=== PATIENT | male | born 1975 | race Asian ===

== ENCOUNTER → 2017-06-29 | Outpatient (CLI) | payer MEDICAID ==
[2017-06-29 08:04] LABS: Cholesterol 197 mg/dL (<200); Glucose 111 mg/dL (74-99); HDL Cholesterol 38 mg/dL (40-60); LDL Cholesterol,Calculated 122 mg/dL (0-99); Triglycerides 185 mg/dL (<150)
[2017-06-29 15:41] LABS: Hemoglobin A1C 5.7 % (4.0-6.0)
== END | disposition home or self-care (01) ==
LOC: LABWHC1 06:55
PROVIDERS: ATTEND Family Medicine
DX: E78.5 Hyperlipidemia, unspecified (principal); R73.09 Other abnormal glucose
CPT/HCPCS: 36415; 80061; 82947; 83036

== ENCOUNTER → 2017-12-29 | Outpatient (CLI) | payer MEDICAID ==
--- NOTE | 2017-12-29 15:30 | XR ---
EXAMINATION TYPE: XR lumbar spine 2 or 3V DATE OF EXAM: 12/29/2017 CLINICAL HISTORY: Back pain for 6 to 8 months TECHNIQUE: Frontal and lateral images of the lumbar spine are obtained. COMPARISON: None FINDINGS: There are 5 lumbar type vertebral bodies identified. The lumbar spine shows satisfactory alignment without evidence of acute fracture or dislocation. Vertebral body heights and disk space he ights are within normal limits. Very mild degenerative changes are seen as small anterior osteophytes are present at L4-L5 and L5-S1. The overlying soft tissue appears unremarkable. IMPRESSION: No acute fracture or dislocation is seen in the lumbar spine. Very mild degenerative migel nges at L4-S1.
--- NOTE | 2017-12-29 15:32 | XR ---
EXAMINATION TYPE: XR KUB DATE OF EXAM: 12/29/2017 2:53 PM CLINICAL HISTORY: Abdominal and back pain TECHNIQUE: Single supine KUB image of the abdomen is obtained. COMPARISON: None. FINDINGS: Scattered gas is seen in non-distended small bowel loops. Gas and fecal material is seen in non-distended colon. There is no visceromegaly, gross evidence of pneumoperitoneum, or abnormal calc ification appreciated. The lung bases are clear and the osseous structures are intact. Multiple phleb oliths are noted within the pelvis. Mild degenerative changes of the lumbosacral spine and femoral ac etabular joints are noted. IMPRESSION: No abnormal calcifications to suggest nephrolithiasis. Nonobstructive bowel gas pattern.
== END | disposition home or self-care (01) ==
LOC: RADXRMAIN 14:35
PROVIDERS: ATTEND Internal Medicine
DX: M47.817 Spondylosis without myelopathy or radiculopathy, lumbosacral region (principal); R14.3 Flatulence
CPT/HCPCS: 72100; 74018

== ENCOUNTER → 2018-01-02 | Outpatient (CLI) | payer MEDICAID ==
--- NOTE | 2018-01-02 10:07 | US ---
EXAMINATION TYPE: US kidneys/renal and bladder DATE OF EXAM: 01/02/2018 COMPARISON: NONE CLINICAL HISTORY: R31.9 Hematuria. EXAM MEASUREMENTS: Right Kidney: 11.8 x 7.3 x 5.4 cm cm Left Kidney: 12.7 x 5.9 x 6.0 cm cm Post Void Residual Volume: 0 mL Right Kidney: Unremarkable. No hydronephrosis or nephrolithiasis. Cortical medullary differentiatio n is maintained. Left Kidney: Unremarkable. No hydronephrosis or nephrolithiasis. Cortical medullary differentiation is maintained. Bladder: wnl Bilateral Jets seen: Yes Normal Post Void Residual: Yes There is no evidence for hydronephrosis at this point in time. No nephrolithiasis is seen. No eduardo s are identified. The urinary bladder is anechoic. Bilateral ureteral jets are seen. IMPRESSION: Unremarkable renal ultrasound. In the setting of hematuria CT urogram could be considered for further evaluation.
== END | disposition home or self-care (01) ==
LOC: RADUSWWP 08:26
PROVIDERS: ATTEND Internal Medicine
DX: R31.9 Hematuria, unspecified (principal)
CPT/HCPCS: 76770

== ENCOUNTER → 2018-04-11 | Outpatient (CLI) | payer MEDICAID ==
--- NOTE | 2018-04-11 08:23 | MR ---
EXAMINATION TYPE: MR lumbar spine wo con DATE OF EXAM: 04/11/2018 COMPARISON: Lumbar spine x-ray December 29, 2017. HISTORY: Spondylosis lumbosacral region per order. Low back pain for one year radiating into right bu ttocks. TECHNIQUE: Multiplanar, multisequence imaging of the lumbar spine is performed without IV contrast. FINDINGS: Sagittal images of the lumbar spine show vertebral body heights to appear satisfactory. The re is subtle grade 1 anterolisthesis of L4 on L5. Disc desiccation with mild disc space narrowing L4- L5 is present. No large posterior disc herniations are seen on sagittal images. The conus medullaris is normal in position and signal ending inferior T12 level. The bone marrow signal intensity is with in normal limits. Mild multilevel anterior spurring in the lower lumbar spine is present. Axial images show the T12-L1, L1-L2, L2-L3, and L3-L4 levels to appear within normal limits. Axial images at the L4-L5 level show spondylolisthesis and broad-based posterior disc protrusion. The re is mild facet degenerative changes and ligament flavum hypertrophy. There is effacement of the ant erior thecal sac. There is mild to moderate bilateral anterior inferior neural foraminal narrowing. Axial images at the L5-S1 level show mild to moderate facet degenerative changes bilaterally. Spinal canal is preserved. Bilateral neural foramina are patent. No suspicious retroperitoneal findings are seen. IMPRESSION: Subtle Spondylolisthesis L4-L5 level with degenerative changes as detailed above.
== END | disposition home or self-care (01) ==
LOC: RADMRIMAIN 06:53
PROVIDERS: ATTEND Internal Medicine
DX: M48.061 Spinal stenosis, lumbar region without neurogenic claudication (principal); M99.73 Connective tissue and disc stenosis of intervertebral foramina of lumbar region; M51.26 Other intervertebral disc displacement, lumbar region; M43.16 Spondylolisthesis, lumbar region; M47.816 Spondylosis without myelopathy or radiculopathy, lumbar region
CPT/HCPCS: 72148

== ENCOUNTER → 2018-05-30 | Outpatient (CLI) | payer MEDICAID ==
[2018-05-29 16:12] VITALS: BMI 31.7
[2018-05-30 12:15] VITALS: BP 149/94; PULSE 71; RESP 18
--- NOTE | 2018-05-30 13:02 | P.PAINCN ---
History of Present Illness - Reason for Consult Consult date: 05/30/18 - History of Present Illness This is 42 years old male with a chronic history of severe low back pain, started more than a year ago, he denies any initiating event, he reported that the pain is constant localized mainly on the right side and is not radiated to the lower extremity, he denies any fever or night sweats but denies any change in the bowel movement or urination, and no motor or sensory deficit, he is done chiropractics without any benefit, he is using diclofenac twice a day, with minimal benefit Past Medical History Past Medical History: Musculoskeletal Disorder Additional Past Medical History / Comment(s): low back pain History of Any Multi-Drug Resistant Organisms: None Reported Additional Past Surgical History / Comment(s): eye surg. Past Anesthesia/Blood Transfusion Reactions: No Reported Reaction Smoking Status: Never smoker Past Alcohol Use History: Occasional Past Drug Use History: None Reported - Past Family History Mother Family Medical History: No Reported History Medications and Allergies Home Medications Medication Instructions Recorded Confirmed Type Acetaminophen Tab [Tylenol Tab] 1,000 mg PO Q6HR PRN 05/29/18 05/29/18 History Diclofenac Sodium [Voltaren] 50 mg PO BID 05/29/18 05/29/18 History Ibuprofen [Motrin] 400 mg PO Q6HR PRN 05/29/18 05/29/18 History Allergies Allergy/AdvReac Type Severity Reaction Status Date / Time No Known Allergies Allergy Verified 05/29/18 16:02 Physical Exam Vitals: Vital Signs Pulse Resp BP Pulse Ox 05/30/18 12:02 71 18 149/94 98 Intake and Output 05/29/18 05/30/18 05/30/18 22:59 06:59 14:59 Other: Weight 97.522 kg Social history : not smoker , NO ETOH , NO Illegal drugs use Review of Systems : 1- Constitutional : no chills , no fever , no night sweats , 2- Ears : no ear discharge , no change in hearing 3-Nose, Mouth ,Throat ; no bleeding gums, no sore throat , no epistaxis , 4-Cardiovascular : Denies chest pain, , no orthopnea , no palpitation 5-Respiratory : Denies cough , no dyspnea , no hemoptysis 6-Gastrointestinal :, no change in bowel habits , no coffee- ground emesis . 7-Genitourinary : No hematuria , no discharge , no incontinence, 8-Musculoskeletal : No gait dysfunction , report low back pain , 9- Neurological : no ataxia , no tremor , no sezure , 10-Psychatric , no suicidal ideation no hallucination 11- Endocrine : no cold intolerence , no polyuria , no polydypsia , 12-Hematologic : no easy bleeding , no easy brusing , 13-Allergic / immunology : no angioedema , no wheezing ,no allergic rhinitis 14-Integumentary : no brttle nails , no change hair / nails , no foot/leg ulcers . Physical Examinations : 1-Constitutional : Cooperative , not in acute distress . 2-HEENT : nech ; supple , no Lymphadenopathy , no Thyromegaly , :eyes , no icterus, no photophobia . ENT : , normal oropharynx , no Thrush 3- Respiratory : Chest clear to auscultations Bilaterally , no wheezing . 4- Cardiovascular : regular rate and rhythem , S1 , S2 , no S3 , no S4. 5- Gastrointestinal: abdomen soft no tenderness , no organomegally . 6- Genitourinary : Defferred . 7-Integumentary : No cellulitis , no ulcers , normal skin turgor , no cyanotic . 8- neurologic : Cranial nerve II to XII intact , no focal neurological deffecit 9-psychatric : alert , oriented X 3 , appropriate affect , intact judgment and insight . 10-Lymphatic : no Lymphadenopathy. 11- musculoskeltal: normal gait Lumber spine moter stegnth lower extremities ,thigh and legs 5/5 Right side , 5/5 Left side deep tendon reflexes : normal Knee Jerk , normal ankle Jerk positive lumber facet Loading Test Range of motion of the lumbar spine Flexion 30 degrees, extension 10 degrees strait leg raising test negative bilaterally Fabere test negative bilaterally mild tenderness over the Sacroiliac joint on the R sides Results Comments: MRI of the lumbar spine spondylolisthesis, and L4 5 and L5-S1 lumbar facet arthropathy Assessment and Plan Plan: Assessment and plan= chronic severe low back pain secondary to lumbar spondylosis with facet arthropathy Patient will be good candidate to have diagnostic medial branch block lumbar area right-sided L3 4, L4 5 and L5-S1 x2 She had more than 50% improvement in his pain level then he would be good candidate to have RFA of the lumbar medial branch Time with Patient: Greater than 30 PQRS Measure Charge Sheet Measure #130: Documentation of Current Meds in Medical Chart: Patient's medications documented in chart Measure #226: Tobacco Use: Screen & Cessation Intervention: Pt not a tobacco user Measure #111: Pneumonia Vaccination: Pneumococcal vaccine NOT administered or previously given Measure #47: Advance Care Plan: Advance care planning discussed & documented, pt chose/unable to give Measure #412: Opioid Treatment Agreement: No documentation of signed opioid treatment agreement Measure #408: Opioid Therapy Follow-up Evaluation: Patient had NO f/u eval minimum every 3 months during opioid therapy Measure #317: Preventitive Care & Scrn High Bld Press & F/U: Pre-hypertensive or hypertensive BP documented, pt will f/u with PCP Measure #128: Body Mass Index (BMI) Screening & Follow-up: BMI documented ABOVE normal parameters - f/u documented Measure #131: Pain Assessment & Follow-up: Pain positive & plan documented, Follow-up scheduled Measure #431: Unhealthy Alcohol Use Preventative Care & Scrn: Patient not identified as an unhealthy alcohol user PQRS Narrative: Smoking Status Never smoker Do You Want the Pneumonia No Vaccine AT THIS TIME? Blood Pressure 149/94 Pain Intensity [Right Lower 2 Back] Hx Alcohol Use (MH) social Home Medications: Ambulatory Orders Acetaminophen Tab [Tylenol Tab] 1,000 mg PO Q6HR PRN 05/29/18 Diclofenac Sodium [Voltaren] 50 mg PO BID 05/29/18 Ibuprofen [Motrin] 400 mg PO Q6HR PRN 05/29/18
== END | disposition home or self-care (01) ==
LOC: PNWHC3 11:51
PROVIDERS: ATTEND Specialist
DX: G89.29 Other chronic pain (principal); M47.816 Spondylosis without myelopathy or radiculopathy, lumbar region; M46.96 Unspecified inflammatory spondylopathy, lumbar region; Z79.1 Long term (current) use of non-steroidal anti-inflammatories (NSAID)
CPT/HCPCS: 99211

== ENCOUNTER 2018-06-01 09:57 | Day surgery (SDC) | payer MEDICAID ==
--- NOTE | 2018-06-01 10:04 | P.PCN ---
Date of Procedure: 06/01/18 Preoperative Diagnosis: Lumbar spondylosis without myelopathy Postoperative Diagnosis: Same Procedure(s) Performed: Lumbar medial branch block right L3 4, L4 5, L5-S1 Anesthesia: MAC Description of Procedure: Surgeon: Nehemias Graves MD. Procedure: Right lumbar Medial Branch Block at L3/4, L4/5, and L5/S1 IV Sedation with: 2 mg of Versed Anesthesia: Conscious sedation Given for: Anxiety and fear of needles. The patient was seen and examined in the PO. Procedure risks and benefits were fully reviewed with the patient. The patient understands this is a diagnostic if local only is used, as will be the case today. The goal of the procedure is to inject medication into the medial branch or small nerves that go into the facet joints. In this way, we can hopefully identify which of these joints, if any, may be contributing to their pain. Informed consent for procedure was obtained. The patient was taken into the office fluoroscopy procedure room and placed prone on the table. A pillow was placed under the abdomen to reduce lumbar lordosis. Vital signs were closely monitored during the procedure. The skin over the area was prepped with Betadine X 3 and draped in usual sterile manner. Sterile technique was observed throughout procedure. Under biplanar fluoroscopic guidance, the target injection area of the L3, L4, L5 and sacral ala bilateral were targeted. A 25 gauge 31/2 inch spinal needle was then placed at the most medial and superior aspect of the transverse process near the "eye of the Héctor dog". Aspiration for blood was negative. 1 cc of 0.5% marcaine was injected into the targeted areas separately. [place] were withdrawn intact. No complications were noted during the procedure. The patient tolerated the procedure well. The patient was placed in supine position and transferred to the recovery area for observation and remained stable until discharged home. Home discharge instructions were given to the patient by the staff. The patient will schedule a follow up as directed.
[2018-06-01 10:16] VITALS: TEMP 97.8
[2018-06-01] MEDS ORDERED: LACTATED RINGERS 1,000 ML IV ONE (10:21)
[2018-06-01] MEDS ORDERED: LIDOCAINE 1% 20 ML VIAL (10MG/ML) FOR IV START INTRADERMA ONE (10:24)
[2018-06-01] MEDS ORDERED: IV FLUID CONTINUATION 850 ML IV ONE (10:39)
[2018-06-01 10:51] VITALS: RESP 18
[2018-06-01 11:12] VITALS: BP 136/92; PULSE 70
--- NOTE | 2018-06-01 13:25 | FL ---
EXAMINATION TYPE: FL guided pain mgmt statistic DATE OF EXAM: 06/01/2018 COMPARISON: NONE HISTORY: Back pain TECHNIQUE: Fluoroscopy. FINDINGS/IMPRESSION: Fluoroscopic guidance was provided during procedure performed by Dr. Graves. A total of 5 seconds of fluoroscopic time was utilized during the procedure and 2 spot images was acq uired demonstrating localization of the lumbar spine.
== END 2018-06-01 11:15 | disposition home or self-care (01) ==
LOC: ORPAIN 09:57
PROVIDERS: ATTEND Hospitalist
DX: M47.816 Spondylosis without myelopathy or radiculopathy, lumbar region (principal)
CPT/HCPCS: 64493; 64494; 64495; J2250

== ENCOUNTER 2018-06-14 09:42 | Day surgery (SDC) | payer MEDICAID ==
[2018-06-12 14:46] VITALS: BMI 32.5
[2018-06-14 10:02] VITALS: RESP 16; TEMP 98.2
--- NOTE | 2018-06-14 10:35 | P.PCN ---
Date of Procedure: 06/14/18 Preoperative Diagnosis: Lumbar spondylosis without myelopathy Postoperative Diagnosis: Same Procedure(s) Performed: Right-sided lumbar medial branch block at L3, L4, L5, S1 Anesthesia: none Surgeon: Nehemias Graves Disposition: PACU Description of Procedure: Procedure: Right lumbar Medial Branch Block at L3/4, L4/5, and L5/S1 No anesthesia The patient was seen and examined in the PO. Procedure risks and benefits were fully reviewed with the patient. The patient understands this is a diagnostic if local only is used, as will be the case today. The goal of the procedure is to inject medication into the medial branch or small nerves that go into the facet joints. In this way, we can hopefully identify which of these joints, if any, may be contributing to their pain. Informed consent for procedure was obtained. The patient was taken into the office fluoroscopy procedure room and placed prone on the table. A pillow was placed under the abdomen to reduce lumbar lordosis. Vital signs were closely monitored during the procedure. The skin over the area was prepped with Betadine X 3 and draped in usual sterile manner. Sterile technique was observed throughout procedure. Under biplanar fluoroscopic guidance, the target injection area of the L3, L4, L5 and sacral ala bilateral were targeted. A 25 gauge 31/2 inch spinal needle was then placed at the most medial and superior aspect of the transverse process near the "eye of the Héctor dog". Aspiration for blood was negative. 1 cc of 0.5% marcaine was injected into the targeted areas separately. [place] were withdrawn intact. No complications were noted during the procedure. The patient tolerated the procedure well. The patient was placed in supine position and transferred to the recovery area for observation and remained stable until discharged home. Home discharge instructions were given to the patient by the staff. The patient will schedule a follow up as directed.
[2018-06-14 11:01] VITALS: BP 140/88; PULSE 60
--- NOTE | 2018-06-14 11:46 | FL ---
EXAMINATION TYPE: FL guided pain mgmt statistic DATE OF EXAM: 06/14/2018 COMPARISON: NONE HISTORY: Lumbar facet block. Back pain. Fluoroscopic documentation. TECHNIQUE: Fluoroscopy. FINDINGS/IMPRESSION: Fluoroscopic guidance was provided during procedure performed by Dr. Graves. A total of 10 seconds of fluoroscopic time was utilized during the procedure and 3 spot images was ac quired demonstrating localization over the lumbar spine.
== END 2018-06-14 11:10 | disposition home or self-care (01) ==
LOC: ORPAIN 09:42
PROVIDERS: ATTEND Hospitalist
DX: M47.816 Spondylosis without myelopathy or radiculopathy, lumbar region (principal)
CPT/HCPCS: 64490; 64491; 64493; 64494; 64495

== ENCOUNTER → 2018-07-26 | Outpatient (CLI) | payer MEDICAID ==
[2018-07-26 14:49] VITALS: BP 152/80; PULSE 78; RESP 16
--- NOTE | 2018-07-26 15:30 | P.PN ---
Subjective Progress Note Date: 07/26/18 This is 42 years old male with a chronic history of severe low back pain, he was diagnosed with lumbar spondylosis with lumbar facet arthropathy, recently we have done diagnostic Right side medial branch block lumbar area at L3 4, L4 5, L5-S1, x2 , patient pain was 7/10 before the first diagnostic block and dropped to 0/10, and the pain was 2/10 dropped to 0/10 after the second diagnostic block, the pain relief was for short-term , pain came back and currently is complaining of low back pain mainly on the right side, he denies any fever or night sweats but denies any change in the bowel movement or urination, and no motor or sensory deficit, he is done chiropractics without any benefit. Physical Examinations : 1-Constitutional : Cooperative , not in acute distress . 2-HEENT : nech ; supple , no Lymphadenopathy , no Thyromegaly , :eyes , no icterus, no photophobia . ENT : , normal oropharynx , no Thrush 3- Respiratory : Chest clear to auscultations Bilaterally , no wheezing . 4- Cardiovascular : regular rate and rhythem , S1 , S2 , no S3 , no S4. 5- Gastrointestinal: abdomen soft no tenderness , no organomegally . 6- Genitourinary : Defferred . 7-Integumentary : No cellulitis , no ulcers , normal skin turgor , no cyanotic . 8- neurologic : Cranial nerve II to XII intact , no focal neurological deffecit 9-psychatric : alert , oriented X 3 , appropriate affect , intact judgment and insight . 10-Lymphatic : no Lymphadenopathy. 11- musculoskeltal: normal gait Lumber spine moter stegnth lower extremities ,thigh and legs 5/5 Right side , 5/5 Left side deep tendon reflexes : normal Knee Jerk , normal ankle Jerk positive lumber facet Loading Test Range of motion of the lumbar spine Flexion 30 degrees, extension 10 degrees strait leg raising test negative bilaterally Fabere test negative bilaterally mild tenderness over the Sacroiliac joint on the R sides Results MRI of the lumbar spine spondylolisthesis, and L4 5 and L5-S1 lumbar facet arthropathy Assessment and plan= chronic severe low back pain secondary to lumbar spondylosis with facet arthropathy He had diagnostic medial branch block lumbar area right-sided L3 4, L4 5 and L5-S1 x2 , and he had good pain relief he would be good candidate to have RFA of the right lumbar medial branch PQRS Measure Charge Sheet Measure #130: Documentation of Current Meds in Medical Chart: Patient's medications documented in chart Measure #226: Tobacco Use: Screen & Cessation Intervention: Pt not a tobacco user Measure #111: Pneumonia Vaccination: Pneumococcal vaccine NOT administered or previously given Measure #47: Advance Care Plan: Advance care planning discussed & documented, pt chose/unable to give Measure #412: Opioid Treatment Agreement: No documentation of signed opioid treatment agreement Measure #408: Opioid Therapy Follow-up Evaluation: Patient had NO f/u eval minimum every 3 months during opioid therapy Measure #317: Preventitive Care & Scrn High Bld Press & F/U: Pre-hypertensive or hypertensive BP documented, pt will f/u with PCP Measure #128: Body Mass Index (BMI) Screening & Follow-up: BMI documented ABOVE normal parameters - f/u documented Measure #131: Pain Assessment & Follow-up: Pain positive & plan documented, Follow-up scheduled Measure #431: Unhealthy Alcohol Use Preventative Care & Scrn: Patient not identified as an unhealthy alcohol user PQRS Narrative: Objective - Vital Signs Vital signs: Vital Signs Temp Pulse 78 07/26/18 14:40 Resp 16 07/26/18 14:40 BP 152/80 07/26/18 14:40 Pulse Ox 98 07/26/18 14:40 Intake & Output 07/25/18 07/26/18 07/26/18 18:59 06:59 18:59 Weight 101.151 kg
== END ==
LOC: PNWHC3 14:31
PROVIDERS: ATTEND Specialist
DX: G89.29 Other chronic pain (principal); M47.816 Spondylosis without myelopathy or radiculopathy, lumbar region; M46.96 Unspecified inflammatory spondylopathy, lumbar region
CPT/HCPCS: 99211

== ENCOUNTER 2018-08-03 06:27 | Day surgery (SDC) | payer MEDICAID ==
[2018-08-01 11:24] VITALS: BMI 32.9
[~2018-08-03 06:27] MED LIST: SODIUM CHLORIDE 0.9% 500 ML 500 ML IV SCH
[2018-08-03] MEDS ORDERED: LACTATED RINGERS 1,000 ML IV ONE ×2 (06:40→06:58)
[2018-08-03] MEDS ORDERED: LIDOCAINE 1% 20 ML VIAL (10MG/ML) FOR IV START SQ ONE (06:40)
[2018-08-03 07:24] VITALS: TEMP 97.8
--- NOTE | 2018-08-03 07:32 | P.PCN ---
Date of Procedure: 08/03/18 Procedure(s) Performed: PREOPERATIVE DIAGNOSIS: 1-Lumbar Spondylosis with Facet Arthropathy without myelopathy. POSTOPERATIVE DIAGNOSIS: 1- Lumbar Spondylosis with Facet Arthropathy without myelopathy. PROCEDURES : Right Radiofrequency thermocoagulation, L3-L4, L4-L5, and L5-S1 medial branch, with fluoroscopic guidance ANESTHESIA: Moderate sedation with intravenous versed 2 mg and fentaneyl 100 mcg, and local infiltration with Ropivacaine 0.5 % . EBL: Minimal PROCEDURE INDICATION: The patient with low back pain secondary to lumbar facet arthropathy who had more than 50% relief of her pain with previous diagnostic lumbar medial branch block with bupivacaine. PROCEDURE DESCRIPTION / TECHNIQUE: The patient was seen and identified in the preoperative area. Risks, benefits, complications, including but not limited to risk of infection ,bleeding , allergic reactions to the medications and no complete pain releife , and alternatives were discussed with the patient, the patient agreed to proceed with the procedure and signed the consent. IV was started. Vital signs remained stable throughout the procedure. Patient was taken to the OR and time out was completed. The patient was placed in the prone position on the procedure table. The lumber area was prepped and draped in the usual sterile fashion. . Vital signs were closely monitored during the procedure .IV sedation was used during the procedure to decrease patients anxiety. Using AP and then oblique fluoroscopy, the ``eye of the Héctor dog corresponding to the connection between the superior and transverse articular processes of right L3, L4, and L5 were identified, marked, and localized with 1% lidocaine. Subsequently, a [id number] radiofrequency cannula with a 10- mm active tip was advanced guided by fluoroscopy to each of the``eyes of the Héctor dog at right L3, L4, and L5. Each site then underwent sensory testing at 50 Hz and 0 to 1 volt and motor testing at 2.5 Hz and 0 to 3 volt with local stimulation, but no radicular symptoms down the legs. Thereafter the right L3-4, L4-5, and L5-S1 sites underwent radiofrequency thermocoagulation at 80 degrees celsius for 90 seconds after injecting 0.5 ml of PF Ropivacaine 1ml, then after the thermocoagulation done , 1 ml of the block solution containing Depo-medrol 40 mg and 3 ml of Ropivacaine 0.5% was injected at the right L3-4 , L4-5 , and L5-S1, levels after negative aspiration of CSF and blood and with no paresthesias. Cannulas were retracted while injecting lidocaine 1% until the needle is out. At the end of the procedure, the skin was cleansed and bandages were applied. COMPLICATIONS: No acute complications. DISPOSITION / PLANS: The patient was placed in a supine position and transferred to the recovery area in a stable condition for observation and was discharged from the recovery room after meeting discharge criteria. Home discharge instructions given to the patient by the staff. The patient was reexamined prior to discharge. The patient will schedule a follow up in the clinic in 2-4 weeks.
[2018-08-03] MEDS ORDERED: IV FLUID CONTINUATION 1,000 ML IV ONE (07:36)
[2018-08-03 07:39] VITALS: RESP 18
[2018-08-03 07:50] VITALS: BP 139/98; PULSE 63
--- NOTE | 2018-08-03 10:06 | FL ---
Fluoroscopy HISTORY: Pain 12 seconds fluoroscopy time supplied to the referring clinician. 3 intraoperative C-arm images docum ent the procedure. See dictated report from anesthesia.
== END 2018-08-03 08:10 | disposition home or self-care (01) ==
LOC: ORPAIN 06:27
PROVIDERS: ATTEND Anesthesiology
DX: M47.816 Spondylosis without myelopathy or radiculopathy, lumbar region (principal); G89.29 Other chronic pain
CPT/HCPCS: 64635; 64636; J2250; J1030; J3010; 99152

== ENCOUNTER → 2018-08-24 | Outpatient (CLI) | payer MEDICAID ==
[2018-08-24 12:22] VITALS: BP 126/84; PULSE 69; RESP 16
--- NOTE | 2018-08-24 12:38 | P.PN ---
Subjective Progress Note Date: 08/24/18 This is a 42-year-old gentleman with history of right lower back pain status post lumbar medial branch RFA. The patient states that his pain level went down from 7 before the procedure 21 afterwards. The patient is able to sleep better at night at this point. Today, pt denies new-onset weakness, bowel/bladder incontinence, or any other signs or symptoms of cauda equina syndrome. There are no signs of acute intoxication, and no indications of medication diversion or overuse. In addition to above, 13-point review of systems is also negative for chest pain , shortness of breath, changes in vision, changes in hearing, new onset weakness , abdominal pain, diarrhea, extreme fatigue, malaise, fever, skin changes, homicidal or suicidal ideation, or bowel or bladder incontinence. Vital Signs: Reviewed in EMR Gen: AAOx3, NAD HEENT: PERRLA,hearing grossly normal Pulm: resp unlabored,CTA Heart:S1,S2, No Mur Neck: supple, trachea midline Neuro exam of the lower extremities: Straight leg raising test: Negative bilaterally Tenderness in the paravertebral musculature: Mildly positive on the lumbar area Neuro: CN II-XII grossly intact, Neuro exam of the lower extremities within normal limits Imaging: Reviewed in EMR/chart Assessment: Lumbar spondylosis without myelopathy Plan: 1. Explanation: Opioid and psychological risk scores were reviewed. Diagnoses , prognoses, and multiple treatment options including but not limited to physical therapy, interventional therapies, adjuvant medical therapies, narcotic medication therapies, and surgery were discussed with the patient and all questions were answered to the patient's satisfaction. 2. Opioid agreement: We do not prescribe opioids for this patient 3. Counseling: The patient was counseled extensively on SMOKING CESSATION, BODY MASS INDEX, EXERCISE. Specifically, the patient was instructed regarding the importance of smoking cessation, obesity, and exercise in the context of both chronic pain and overall health. 4. Procedures: None at this point 5. Consultations: None 6. Investigations: None 7. Medications: None 8. Disposition: Return to clinic as needed. The patient may try physical therapy if the pain comes back and if that does not help him then we can plan on doing another RFA on the right side of the lumbar spine. 9. Maps were reviewed and were appropriate. PQRS measures: 1-Patient's medications are documented in the chart. 2-Tobacco use is negative, counseling given 3-Patient has not had a pneumococcal vaccine. 4-Advanced care planning discussed, patient unable to give 5-Opioid contract signed with the patient. 6-Pain positive, follow-up visit or procedure scheduled 7-Patient's blood pressure measured and documented within normal limits. 8-Patient's weight was measured, and body mass index ABOVE the normal limits, and counseling was done. Patient instructed to follow up with PCP. 9-Patient WAS NOT identified as an unhealthy alcohol user. Objective - Vital Signs Vital signs: Vital Signs Temp Pulse 69 08/24/18 12:17 Resp 16 08/24/18 12:17 BP 126/84 08/24/18 12:17 Pulse Ox Intake & Output 08/23/18 08/24/18 08/24/18 18:59 06:59 18:59 Weight 97.069 kg
== END ==
LOC: PNWHC3 12:08
PROVIDERS: ATTEND Anesthesiology
DX: M47.816 Spondylosis without myelopathy or radiculopathy, lumbar region (principal)
CPT/HCPCS: 99211

== ENCOUNTER → 2019-06-11 | Outpatient (CLI) | payer MEDICAID ==
--- NOTE | 2019-06-11 10:52 | CT ---
EXAMINATION TYPE: CT heart w calcium score DATE OF EXAM: 06/11/2019 COMPARISON: None HISTORY: Screening for cardiovascular disorder. 213.9 CT DLP: 74.1 mGycm Automated exposure control for dose reduction was used. CT CALCIUM SCORING Coronary calcium is a marker for plaque (fatty deposits) in a blood vessel or atherosclerosis (harden ing of the arteries). The presence and amount of calcium detected in a coronary artery by the CT sca n, indicates the presence and amount of atherosclerotic plaque. These calcium deposits appear years before the development of heart disease symptoms such as chest pain and shortness of breath. A calcium score is computed for each of the coronary arteries based upon the volume and density of th e calcium deposits. This can be referred to as your calcified plaque burden. It does not correspond directly to the percentage of narrowing in the artery but does correlate with the severity of the un derlying coronary atherosclerosis. PROCEDURE TECHNIQUE - Prospective Gating was used. Slice thickness: 3mm. Density threshold (HU): 130, Pixel threshold: 3, Algorithm: discrete. RESULTS Region: LM Calcium Score ([place]): 48 Volume (mm3): 48 Mass (g): Region: RCA Calcium Score ([place]): 491 Volume (mm3): 413 Mass (g): Region: LAD Calcium Score ([place]): 143 Volume (mm3): 123 Mass (g): Region: CX Calcium Score ([place]): 13 Volume (mm3): 19 Mass (g): Region: PDA Calcium Score ([place]): Volume (mm3): Mass (g): Total: Calcium Score ([place]): 695 Volume (mm3): 603 Mass (g): TOTAL CALCIUM SCORE: 695 IMPRESSION: Calcium Score: 695 Implication: Extensive atherosclerotic plaque Risk of Coronary Artery Disease: High likelihood of at least one significant coronary narrowing. CALCIUM SCORE IMPLICATION RISK OF C ORONARY ARTERY DISEASE 0 No identifiable plaque Very low, generally less than 5% 1-10 Minimal identifiable plaque Very unlikely, less than 10% 11-100 Definite, at least mild atherosclerotic plaque Mild or m inimal coronary narrowings likely 101-400 Definite, at least moderate atherosclerotic plaque Mild coronary ar hernando disease highly likely, significant narrowing possible 401 or Higher Extensive atherosclerotic plaque High lik elihood of at least one significant coronary narrowing
== END ==
LOC: RADCTMAIN 08:51
PROVIDERS: ATTEND Internal Medicine
DX: I25.10 Atherosclerotic heart disease of native coronary artery without angina pectoris (principal)
CPT/HCPCS: 75571

== ENCOUNTER → 2020-10-03 | Outpatient (CLI) | payer MEDICAID ==
--- NOTE | 2020-10-03 16:52 | XR ---
EXAMINATION TYPE: XR chest 2V DATE OF EXAM: 10/03/2020 COMPARISON: None HISTORY: 44-year-old male R06.02, shortness of breath, positive COVID, weakness. TECHNIQUE: PA and lateral views FINDINGS: The cardiomediastinal silhouette, aorta, and pulmonary vasculature are within normal limits. Mild pat patricia interstitial opacities left mid and lower lung and at the right base. No pleural effusion. IMPRESSION: Mild patchy opacities left greater than right concerning for underlying COVID pneumonia.
== END | disposition home or self-care (01) ==
LOC: RADXRMAIN 15:20
PROVIDERS: ATTEND Internal Medicine
DX: U07.1 COVID-19 (principal); R91.8 Other nonspecific abnormal finding of lung field
CPT/HCPCS: 71046

== ENCOUNTER 2024-10-02 09:37 | Day surgery (SDC) | payer MEDICAID ==
[2024-10-02 10:11] VITALS: TEMP 97.8
[2024-10-02] MEDS: IV FLUID CONTINUATION 1,000 ML IV ONE ×2 (10:21→10:57)
[2024-10-02] MEDS: LACTATED RINGERS 1,000 ML IV SCH (10:23)
[2024-10-02] MEDS ORDERED: LIDOCAINE 2% (PF) 20 MG/ML 5 ML VIAL ONE (10:57)
[2024-10-02] MEDS ORDERED: PROPOFOL 10 MG/ML 20 ML VIAL IV ONE (10:57)
[2024-10-02 11:15] VITALS: RESP 16
[2024-10-02 11:32] VITALS: BP 125/79; PULSE 64
--- NOTE | 2024-10-02 16:26 | PCN ---
PROCEDURE NOTE REQUESTING PHYSICIAN: Dr. Rosy Hernandez. BRIEF HISTORY: The patient is a 48-year-old pleasant white male scheduled for colonoscopy as a part of screening for colorectal neoplasia. PROCEDURE PERFORMED: Colonoscopy with biopsy. PREOPERATIVE DIAGNOSIS: Screening for colon cancer. ANESTHESIA: IV sedation per Anesthesia. DESCRIPTION OF PROCEDURE: After informed consent was obtained from the patient, he was brought into the endoscopy unit. IV conscious sedation was administered by Anesthesia and continuous monitoring. Initial digital rectal examination was normal. Olympus CF-190 video colonoscope was then inserted into the rectum, gradually advanced into the cecum. Careful examination was performed. Prep was excellent. Cecum appeared normal. In the ascending colon, there was a 3 mm polyp removed by cold biopsy. Transverse colon, descending colon, sigmoid colon and rectum appeared normal. In the rectum, retroflexion was performed. No lesions were noted. The patient tolerated the procedure well. IMPRESSION: 1. 3 mm ascending colon polyp, status post cold biopsy. 2. Rest of the colon appeared normal. RECOMMENDATIONS: Findings of this examination were discussed with the patient as well as his family. He was advised to follow up with the biopsy results. If the biopsy reveals adenoma, he can have a repeat colonoscopy in 5 years. MMODL / IJN: [id number] /
== END 2024-10-02 11:59 | disposition home or self-care (01) ==
LOC: ORWHC2ENDO 09:37
PROVIDERS: ATTEND Internal Medicine Gastroenterology
DX: Z12.11 Encounter for screening for malignant neoplasm of colon (principal); K63.5 Polyp of colon
CPT/HCPCS: 45380; J2704; J2003; 88305